=== PATIENT | female | born 1985 | race Caucasian/White ===

== ENCOUNTER 2019-05-20 08:47 | Inpatient (IN) | payer MEDICAID, OTHER ==
[~2019-05-20] VITALS: Ht 170.2 cm; Wt 81.2 kg
[2019-05-20] MEDS ORDERED: OLANZapine 5 MG RAPDIS TABLET PO PRN (11:00)
[2019-05-20] MEDS ORDERED: ZOLPIDEM TARTRATE 10 MG TABLET PO PRN (11:00)
[2019-05-20] MEDS ORDERED: INFLUENZA VIRUS VACCINE QVS 2019-20 (3YR+)/PF 60 MCG/0.5 ML SYRINGE IM ONE (12:00)
[2019-05-20] MEDS: LORazepam 2 MG TABLET PO PRN ×2 (12:35→17:22)
[2019-05-20 13:15] VITALS: BP 137/70
[2019-05-20 16:08] VITALS: BP 108/66
[2019-05-20 16:13] VITALS: BP 119/67
[2019-05-20] MEDS: CEPHALEXIN MONOHYDRATE 500 MG CAPSULE PO SCH (16:37)
[2019-05-20] MEDS: NICOTINE 21 MG/24 HOUR PATCH TD SCH (16:37)
[2019-05-20] MEDS ORDERED: LITHIUM CARBONATE 600 MG CAPSULE PO SCH (21:00)
[2019-05-20] MEDS ORDERED: OLANZapine 10 MG TABLET PO SCH (21:00)
[2019-05-20] MEDS: OLANZapine 10 MG TABLET PO SCH (21:29)
[2019-05-20] MEDS: LITHIUM CARBONATE 600 MG CAPSULE PO SCH (21:29)
[2019-05-20] MEDS: DOXEPIN HCL 10 MG CAPSULE PO SCH (21:54)
[2019-05-21 05:08] VITALS: BP 112/62
[2019-05-21 08:00] LABS: BASOPHILS % (AUTO) 0.6 % (0.0-2.0); EOSINOPHILS % (AUTO) 4.3 % (1.0-6.0); HEMATOCRIT 39.8 % (36-46); HEMOGLOBIN 13.6 g/dL (12.0-16.0); LYMPHOCYTES # (AUTO) 1.3 K/uL (1.0-4.8); LYMPHOCYTES % (AUTO) 19.2 % (22.0-44.0); MEAN CORPUSCULAR HGB CONC 34.1 G/dL (31.0-37.0); MEAN CORPUSCULAR VOLUME 97 fL (80-100); MONOCYTES # (AUTO) 0.7 K/uL (0.1-1.0); NEUTROPHILS # (AUTO) 4.4 K/uL (1.8-7.7); NEUTROPHILS % (AUTO) 65.9 % (40.0-70.0); PLATELET COUNT (AUTO) 281 K/uL (150-450); RED BLOOD CELL COUNT(AUTO) 4.12 MIL/uL (4.00-5.20)
[2019-05-21 08:09] VITALS: BP 114/57
[2019-05-21 08:19] LABS: LITHIUM 0.57 mmol/L (0.60-1.20)
[2019-05-21 08:27] LABS: ALANINE AMINOTRANSFERASE 59 U/L (12-78); ALBUMIN 3.4 g/dL (3.4-5.0); ALKALINE PHOSPHATASE 62 U/L (46-116); ANION GAP 7 mmol/L (8-16); ASPARTATE AMINOTRANSFERASE 31 U/L (15-37); BILIRUBIN,TOTAL 0.5 mg/dL (0.1-1.0); CALCIUM, TOTAL 8.6 mg/dL (8.8-10.5); CARBON DIOXIDE 26 mmol/L (22-29); CHLORIDE 106 mmol/L (98-107); CHOL/HDL RATIO 2.4 (3.9-5.7); CHOLESTEROL 177 mg/dL (131-200); CREATININE 0.72 mg/dL (0.60-1.30); GLOMERULAR FILTR. RATE CALC > 60 mL/min (>60); GLUCOSE,RANDOM 82 mg/dL (70-110); HCG,QUANTITATIVE < 1 mIU/mL (0-6); HDL CHOLESTEROL 75 mg/dL (40-60); LDL CHOL (CALC.) 94 mg/dL (0-130); POTASSIUM 3.8 mmol/L (3.5-5.1); SODIUM SERUM 139 mmol/L (136-145); TOTAL PROTEIN, SERUM 6.9 g/dL (6.4-8.2); TRIGLYCERIDES 42 mg/dL (15-150)
[2019-05-21 08:40] LABS: UREA NITROGEN, BLOOD 10 mg/dL (7-18)
[2019-05-21] MEDS: NICOTINE 21 MG/24 HOUR PATCH TD SCH (09:01)
[2019-05-21] MEDS: CEPHALEXIN MONOHYDRATE 500 MG CAPSULE PO SCH ×2 (09:01→16:08)
[2019-05-21] MEDS: LITHIUM CARBONATE 600 MG CAPSULE PO SCH ×2 (09:01→16:08)
[2019-05-21] MEDS: LORazepam 2 MG TABLET PO PRN ×2 (10:22→15:03)
[2019-05-21] MEDS ORDERED: PETROLATUM,WHITE 28 GM JELLY TP PRN (15:00)
[2019-05-21] MEDS ORDERED: CloNIDine HCL 0.1 MG TABLET PO PRN (15:00)
[2019-05-21] MEDS ORDERED: DOCUSATE SODIUM 100 MG CAPSULE PO PRN (15:00)
[2019-05-21] MEDS ORDERED: LOPERAMIDE HCL 2 MG CAPSULE PO PRN (15:00)
[2019-05-21] MEDS ORDERED: MAG HYDROX/AL HYDROX/SIMETH ES 30 ML SUSPENSION UDCUP PO PRN (15:00)
[2019-05-21] MEDS ORDERED: ALBUTEROL SULFATE HFA 90 MCG/PUFF 8 GM INHALER IH PRN (15:00)
[2019-05-21] MEDS ORDERED: ACETAMINOPHEN 325 MG TABLET PO PRN (15:00)
[2019-05-21] MEDS ORDERED: GuaiFENesin/D-METHORPHAN [SUGAR-FREE] 200-20MG/10 ML SYRUP UDCUP PO PRN (15:00)
[2019-05-21] MEDS ORDERED: MAGNESIUM HYDROXIDE SUSPENSION 30 ML UDCUP PO PRN (15:00)
[2019-05-21] MEDS ORDERED: NICOTINE 14 MG/24 HOUR PATCH TD PRN (15:00)
[2019-05-21] MEDS ORDERED: ONDANSETRON HCL 4 MG TABLET PO PRN (15:00)
[2019-05-21 16:03] VITALS: BP 110/66
[2019-05-21] MEDS: OLANZapine 10 MG TABLET PO SCH (20:32)
[2019-05-21] MEDS: DOXEPIN HCL 10 MG CAPSULE PO SCH (20:32)
[2019-05-22 05:53] VITALS: BP 100/53
[2019-05-22 08:16] VITALS: BP 117/62
[2019-05-22] MEDS: CEPHALEXIN MONOHYDRATE 500 MG CAPSULE PO SCH (08:43)
[2019-05-22] MEDS: LITHIUM CARBONATE 600 MG CAPSULE PO SCH (08:43)
[2019-05-22] MEDS: NICOTINE 21 MG/24 HOUR PATCH TD SCH (08:43)
[2019-05-22] MEDS: LORazepam 2 MG TABLET PO PRN (08:47)
[2019-05-22] MEDS ORDERED: OLAN10TA3 PO (16:01)
[2019-05-22] MEDS ORDERED: LITH600 PO (16:01)
[2019-05-22] MEDS ORDERED: DOXE10 PO (16:01)
[2019-05-22] MEDS ORDERED: CEPH-582 PO (16:01)
[2019-05-22 16:09] VITALS: BP 116/60
== END 2019-05-22 16:20 | disposition home or self-care (01) | DRG 750 ==
LOC: B3A 09:38
PROVIDERS: ADMIT Psychiatry & Neurology Psychiatry; ATTEND Psychiatry & Neurology Child & Adolescent Psychiatry
DX: F25.9 Schizoaffective disorder, unspecified (principal); R45.851 Suicidal ideations; F10.10 Alcohol abuse, uncomplicated; F31.9 Bipolar disorder, unspecified; F40.10 Social phobia, unspecified; F41.1 Generalized anxiety disorder; J44.9 Chronic obstructive pulmonary disease, unspecified; K21.9 Gastro-esophageal reflux disease without esophagitis; N39.0 Urinary tract infection, site not specified; F12.10 Cannabis abuse, uncomplicated; B19.20 Unspecified viral hepatitis C without hepatic coma; Z62.810 Personal history of physical and sexual abuse in childhood; Z81.8 Family history of other mental and behavioral disorders; Z71.41 Alcohol abuse counseling and surveillance of alcoholic; Z71.51 Drug abuse counseling and surveillance of drug abuser
CPT/HCPCS: 83036; 84443; 86592; 90686